=== PATIENT | male | born 1950 | race Caucasian/White ===

== ENCOUNTER 2017-10-13 07:20 | Day surgery (SDC) | payer BC ==
[~2017-10-13 07:20] MED LIST: Lactated Ringers 1,000 ML IV SCH; Lidocaine 1%/Sod Bicarbonate in NS 8.4% 1 ML Syringe IDERM PRN; Sodium Chloride 0.9% 10 ML Syringe FLUSH PRN
[2017-10-13] MEDS ORDERED: Ketorolac 30 MG/ML SDV ONE (07:28)
[2017-10-13] MEDS ORDERED: Propofol 200 MG/20 ML SDV ONE ×2 (07:28→10:08)
[2017-10-13] MEDS ORDERED: fentaNYL 100 MCG/2 ML SDV ONE (07:28)
[2017-10-13] MEDS ORDERED: Midazolam 1 MG/ML 2 ML SDV ONE (07:28)
[2017-10-13] MEDS ORDERED: ceFAZolin 1 GM Vial ONE ×3 (07:51→08:55)
--- NOTE | 2017-10-13 08:14 | PCM.PREANE ---
Preanesthetic Assessment - Anesthesia/Transfusion/Family Hx Anesthesia History: Prior Anesthesia Without Reaction Family History of Anesthesia Reaction: No Transfusion History: No Prior Transfusion(s) - Review of Systems General: No Symptoms Pulmonary: No Symptoms Cardiovascular: Other (HTn) Gastrointestinal: No Symptoms Neurological: No Symptoms Other: Reports: None - Physical Assessment NPO Status Date: 10/12/17 NPO Status Time: 21:00 Pulse: 71 O2 Sat by Pulse Oximetry: 94 Respiratory Rate: 16 Blood Pressure: 144/92 Temperature: 36.8 C Weight: 91.6 kg ASA Class: 2 Mental Status: Alert & Oriented x3 Airway Class: Mallampati = 2 Dentition: Reports: Normal Dentition Thyro-Mental Finger Breadths: 3 Mouth Opening Finger Breadths: 3 ROM/Head Extension: Full Lungs: Clear to Auscultation, Normal Respiratory Effort Cardiovascular: Regular Rate, Regular Rhythm - Lab Values: Laboratory Last Values MRSA (PCR) Negative 10/01/17 16:38 - Allergies Allergies/Adverse Reactions: Allergies Allergy/AdvReac Type Severity Reaction Status Date / Time codeine AdvReac Headache Verified 10/10/17 15:13 - Blood Blood Available: No Product(s) Available: None - Anesthesia Plan Pre-Op Medication Ordered: None - Acknowledgements Anesthesia Type Planned: Spinal Pt an Appropriate Candidate for the Planned Anesthesia: Yes Alternatives and Risks of Anesthesia Discussed w Pt/Guardian: Yes Pt/Guardian Understands and Agrees with Anesthesia Plan: Yes PreAnesthesia Questionnaire HEENT History: Reports: Impaired Vision Cardiovascular History: Reports: Hypertension Respiratory History: Reports: None Genitourinary History: Reports: None HELP DESK SUPPORT History: Reports: None Musculoskeletal History: Reports: Other (See Below) Other Musculoskeletal History: left knee pain Neurological History: Reports: None Psychiatric History: Reports: None Endocrine/Metabolic History: Reports: None Hematologic History: Reports: None Immunologic History: Reports: None Oncologic (Cancer) History: Reports: None Dermatologic History: Reports: Other (See Below) Other Dermatologic History: skin neoplasm - Past Surgical History Head Surgeries/Procedures: Reports: None Cardiovascular Surgical History: Reports: None Respiratory Surgical History: Reports: None GI Surgical History: Reports: Colonoscopy Female Surgical History: Reports: None Male Surgical History: Reports: None Endocrine Surgical History: Reports: None Neurological Surgical History: Reports: None Musculoskeletal Surgical History: Reports: Arthroscopic Knee Oncologic Surgical History: Reports: None Dermatological Surgical History: Reports: None - SUBSTANCE USE Smoking Status *Q: Never Smoker Second Hand Smoke Exposure: No Days Per Week of Alcohol Use: 0 Recreational Drug Use History: No - HOME MEDS Home Medications: Home Meds Fluticasone Propionate [Flonase] 1 spray NASBOTH DAILY PRN 11/22/14 [History] Lisinopril/Hydrochlorothiazide [Lisinopril-Hctz 20-25 mg Tab] 20 - 25 mg PO DAILY 11/22/14 [History] Calcium Carb/Magnesium Cmb #10 [Karel-Mag] 1 tab PO DAILY 10/10/17 [History] Cholecalciferol (Vitamin D3) [Vitamin D3] 5,000 unit PO DAILY 10/10/17 [History] Fish Oil/[place]-3 Fatty Acids [Fish Oil 1,000 MG] 1 gm PO DAILY 10/10/17 [History ] Gluc 2KCl/Chondr/[place] Hy/Hy Ac [Glucosamine & Chondroitin Cap] 2 cap PO DAILY [History] Lysine 500 mg PO DAILY 10/10/17 [History] Multivitamin [Zoo Chews] 1 tab PO DAILY 10/10/17 [History] Potassium Chloride [Potassium Chloride] 20 meq PO TID 10/10/17 [History] Vitamin E 400 unit PO DAILY 10/10/17 [History] - CURRENT (IN HOUSE) MEDS Current Meds: Current Medications Aspirin (Ecotrin) 325 mg PO BID [facility] Bisacodyl (Dulcolax) 5 mg PO DAILY PRN PRN Reason: Constipation Morphine Sulfate 8 mg/Epinephrine HCl 0.3 mg/Cefuroxime Sodium 750 mg/Ketorolac Tromethamine 30 mg/Sodium Chloride 27.9 ml 0 mg .XX ONETIME ONE Stop: 10/13/17 09:31 Cyclobenzaprine HCl (Flexeril) 10 mg PO TID PRN PRN Reason: Spasms Diphenhydramine HCl (Benadryl) 25 mg IVPUSH Q4H PRN PRN Reason: Nausea Docusate Sodium (Colace) 100 mg PO BID [facility] Famotidine (Pepcid) 20 mg PO BID [facility] Lactated Ringer's (Ringers, Lactated) 1,000 mls @ 125 mls/hr IV ASDIRECTED [facility] Stop: 10/13/17 23:00 Cefazolin Sodium/Dextrose 2 gm (/ Premix) 50 mls @ 100 mls/hr IV Q8H [facility] Stop: 10/13/17 23:29 Ketorolac Tromethamine (Toradol) 15 mg IVPUSH Q6H PRN PRN Reason: Pain Lidocaine/Sodium Bicarbonate (Buffered Lidocaine 1% In Ns 8.4%) 0.25 ml IDERM ONETIME PRN PRN Reason: Prior to IV Start Stop: 10/13/17 18:00 Magnesium Hydroxide (Milk Of Magnesia) 30 ml PO BID PRN PRN Reason: Constipation Morphine Sulfate (Morphine) 2 mg IVPUSH Q2H PRN PRN Reason: Breakthrough Pain Naloxone HCl (Narcan) 0.1 mg IVPUSH Q5M PRN PRN Reason: Oversedation Ondansetron HCl (Zofran) 4 mg IVPUSH Q6H PRN PRN Reason: Nausea/Vomiting Oxycodone/Acetaminophen (Percocet 325-5 Mg) 1 - 2 tab PO Q4H PRN PRN Reason: Pain Senna (Senna) 8.6 mg PO BID PRN PRN Reason: Constipation Sodium Chloride (Saline Flush) 10 ml FLUSH ASDIRECTED PRN PRN Reason: Keep Vein Open Stop: 10/13/17 18:00 Discontinued Medications Cefazolin Sodium (Ancef) Confirm Administered Dose 2 gm .ROUTE .STK-MED ONE Stop: 10/13/17 07:29 Fentanyl (Sublimaze) Confirm Administered Dose 100 mcg .ROUTE .STK-MED ONE Stop: 10/13/17 07:29 Ketorolac Tromethamine (Toradol) Confirm Administered Dose 30 mg .ROUTE .STK- MED ONE Stop: 10/13/17 07:29 Midazolam HCl (Versed 1 Mg/Ml) Confirm Administered Dose 2 mg .ROUTE .STK-MED ONE Stop: 10/13/17 07:29 Propofol (Diprivan 20 Ml) Confirm Administered Dose 600 mg .ROUTE .STK-MED ONE Stop: 10/13/17 07:29
[2017-10-13] MEDS ORDERED: Bupivacaine 0.25% 30 ML SDV ONE (08:55)
[2017-10-13] MEDS ORDERED: Vancomycin 1 GM SDV ONE (08:55)
[2017-10-13] MEDS ORDERED: Iodine/Sodium Iodide 2% Tincture 30 ML Bottle ONE (08:55)
[2017-10-13] MEDS: Iodine/Sodium Iodide 2% Tincture 30 ML Bottle ONE ×2 (09:44→10:10)
[2017-10-13] MEDS: Bupivacaine 0.25% 30 ML SDV ONE ×2 (09:45→10:17)
[2017-10-13] MEDS: ceFAZolin 1 GM Vial ONE ×2 (09:45→10:00)
[2017-10-13] MEDS: Vancomycin 1 GM SDV ONE ×2 (09:47→10:20)
[2017-10-13] MEDS: Morphine 8 MG, EPINEPHrine 0.3 MG, Cefuroxime 750 MG, Ketorolac 30 MG, Sodium Chloride ... ONE ×15 (09:51→20:13)
[2017-10-13] MEDS ORDERED: diphenhydrAMINE 50 MG/ML SDV IVPUSH PRN (10:00)
[2017-10-13] MEDS ORDERED: Ondansetron 4 MG/2 ML SDV IVPUSH PRN ×2 (10:00→11:09)
[2017-10-13] MEDS ORDERED: Naloxone 0.4 MG/ML SDV IVPUSH PRN (10:00)
[2017-10-13] MEDS ORDERED: Bisacodyl 5 MG Tab PO PRN (10:00)
[2017-10-13] MEDS ORDERED: Cyclobenzaprine 10 MG Tab PO PRN (10:00)
[2017-10-13] MEDS ORDERED: Morphine 4 MG/ML Syringe IVPUSH PRN (10:00)
[2017-10-13] MEDS ORDERED: Magnesium Hydroxide 400 MG/5 ML Susp 30 ML Cup PO PRN (10:00)
[2017-10-13] MEDS ORDERED: Sennosides 8.6 MG Tab PO PRN (10:00)
[2017-10-13] MEDS ORDERED: Phenylephrine 1% 10 MG/ML SDV ONE (10:12)
[2017-10-13] MEDS ORDERED: Lactated Ringers 1,000 ML ONE (10:13)
[2017-10-13] MEDS ORDERED: Ropivacaine 0.5% 5 MG/ML 30 ML SDV ONE (10:56)
[2017-10-13] MEDS ORDERED: EPINEPHrine 1 MG/ML SDV ONE (10:56)
--- NOTE | 2017-10-13 11:08 | PCM.POSTAN ---
POST ANESTHESIA ASSESSMENT - MENTAL STATUS Mental Status: Alert, Oriented - VITAL SIGNS Pulse Rate: 90 SaO2: 96 Resp Rate: 20 Blood Pressure: 102/68 Temperature: 36.5 C - RESPIRATORY Respiratory Status: Respiratory Rate WNL, Airway Patent, O2 Saturation Stable, Supplemental Oxygen - CARDIOVASCULAR CV Status: Pulse Rate WNL, Blood Pressure Stable - GASTROINTESTINAL GI Status: No Symptoms - PAIN Pain Score: 0 - POST OP HYDRATION Hydration Status: Adequate & Stable
[2017-10-13] MEDS ORDERED: fentaNYL 100 MCG/2 ML SDV IVPUSH PRN (11:09)
[2017-10-13] MEDS ORDERED: HYDROmorphone 0.5 MG/0.5 ML Syringe IVPUSH PRN (11:09)
--- NOTE | 2017-10-13 11:39 | PCM.SN ---
- Free Text/Narrative Note: Left selective femoral nerve block at the adductor canal for post-procedure pain control under US guidance requested by Dr. Mendez. Time Out: 1109 Start: 1116 End: 1121 Chart reviewed. Consent signed. Questions answered. Appropriate monitors applied. Time out performed. Left mid-shaft femur identified with ultrasound, scanning medially of femur, the femoral artery in the adductor canal visualized , and the femoral nerve located laterally to the artery. The skin was prepped lateral to the ultrasound probe with chlorahexadine. The 21ga 4 insulated block needle was inserted under direct ultrasound guidance into the adductor canal. 25mL of 0.5% ropivacaine with 1:200,000 epinephrine was injected circumferentially around the nerve with intermittent negative aspiration noted. Patient tolerated the procedure well. See pictures on progress note and vital signs on nurses notes. Block completed in PACU. Assisted by JES Quintero CRNA
--- NOTE | 2017-10-13 12:27 | CR ---
Left knee: Two views of the left knee were obtained. Comparison: Prior left knee exam of 08/11/17. Knee prosthesis is seen. Components are aligned. Underlying bony structures are intact. Soft tissue air is noted from the surgical procedure. Impression: 1. Satisfactory appearance of recently placed left knee prosthesis. Diagnostic code #2
--- NOTE | 2017-10-13 13:21 | PCM48HPAN ---
Post Anesthesia Note - EVALUATION WITHIN 48HRS OF ANESTHETIC Vital Signs in Normal Range: Yes Patient Participated in Evaluation: Yes Respiratory Function Stable: Yes Airway Patent: Yes Cardiovascular Function Stable: Yes Hydration Status Stable: Yes Pain Control Satisfactory: Yes Nausea and Vomiting Control Satisfactory: Yes Mental Status Recovered: Yes Pulse Rate: 90 Resp Rate: 14 Temperature: 36.5 C Blood Pressure: 102/68
[2017-10-13] MEDS: ceFAZolin 2 GM in Premix Bag 1 BAG IV SCH ×2 (15:54→22:01)
[2017-10-13] MEDS: Potassium Chloride 20 MEQ Tab.ER PO SCH ×2 (15:54→22:02)
[2017-10-13] MEDS: Ketorolac 15 MG/ML SDV IVPUSH PRN (18:22)
[2017-10-13] MEDS: Docusate Sodium 100 MG Cap PO SCH (22:02)
[2017-10-13] MEDS: Famotidine 20 MG Tab PO SCH (22:02)
[2017-10-13] MEDS: Acetaminophen/oxyCODONE 325-5 MG Tab PO PRN (22:03)
[2017-10-14] MEDS: Ketorolac 15 MG/ML SDV IVPUSH PRN (00:34)
[2017-10-14] MEDS: ceFAZolin 2 GM in Premix Bag 1 BAG IV SCH (07:05)
--- NOTE | 2017-10-14 08:07 | PCM.SURGPN ---
- General Info Date of Service: 10/14/17 POD#: 1 Functional Status: Reports: Pain Controlled, Tolerating Diet, Ambulating, Urinating, Incentive Spirometry - Review of Systems Musculoskeletal: Reports: Other (The pt and state pt is prepared for discharge to home.) - Patient Data Vitals - Most Recent: Last Vital Signs Temp 98.6 F 10/14/17 07:41 Pulse 74 10/14/17 07:41 Resp 20 10/14/17 07:41 BP 122/76 10/14/17 07:41 Pulse Ox 95 10/14/17 07:41 Weight - Most Recent: 201 lb 15.095 oz I&O - Last 24 Hours: Intake & Output 10/13/17 10/14/17 10/14/17 22:59 06:59 14:59 Intake Total 0 Balance 0 Lab Results Last 24 Hrs: Laboratory Results - last 24 hr 10/14/17 Range/Units 05:52 WBC 8.51 (4.23-9.07) K/mm3 RBC 3.98 L (4.63-6.08) M/mm3 Hgb 12.7 L (13.7-17.5) gm/L Hct 37.5 L (40.1-51.0) % MCV 94.2 H (79.0-92.2) fl MCH 31.9 (25.7-32.2) pg MCHC 33.9 (32.2-35.5) g/dl RDW Std Deviation 40.6 (35.1-43.9) fL Plt Count 217 (163-337) K/mm3 MPV 11.4 (9.4-12.3) fl Med Orders - Current: Current Medications Aspirin (Ecotrin) 325 mg PO BID [facility] Bisacodyl (Dulcolax) 5 mg PO DAILY PRN PRN Reason: Constipation Cholecalciferol (Vitamin D3) 5,000 units PO DAILY [facility] Cyclobenzaprine HCl (Flexeril) 10 mg PO TID PRN PRN Reason: Spasms Last Admin: 10/13/17 22:03 Dose: 10 mg Diphenhydramine HCl (Benadryl) 25 mg IVPUSH Q4H PRN PRN Reason: Nausea Docusate Sodium (Colace) 100 mg PO BID [facility] Last Admin: 10/13/17 22:02 Dose: 100 mg Famotidine (Pepcid) 20 mg PO BID [facility] Last Admin: 10/13/17 22:02 Dose: 20 mg Flunisolide (Nasalide Nasal [place]) 0 ml NASBOTH BID PRN PRN Reason: Allergies Hydrochlorothiazide (Hydrochlorothiazide) 25 mg PO DAILY [facility] Ketorolac Tromethamine (Toradol) 15 mg IVPUSH Q6H PRN PRN Reason: Pain Last Admin: 10/14/17 00:34 Dose: 15 mg Lisinopril (Prinivil) 20 mg PO DAILY [facility] Magnesium Hydroxide (Milk Of Magnesia) 30 ml PO BID PRN PRN Reason: Constipation Morphine Sulfate (Morphine) 2 mg IVPUSH Q2H PRN PRN Reason: Breakthrough Pain Last Admin: 10/14/17 00:35 Dose: 2 mg Multivitamins (Thera) 1 each PO DAILY [facility] Naloxone HCl (Narcan) 0.1 mg IVPUSH Q5M PRN PRN Reason: Oversedation Ondansetron HCl (Zofran) 4 mg IVPUSH Q6H PRN PRN Reason: Nausea/Vomiting Oxycodone/Acetaminophen (Percocet 325-5 Mg) 1 - 2 tab PO Q4H PRN PRN Reason: Pain Last Admin: 10/13/17 22:03 Dose: 2 tab Potassium Chloride (Klor-Con M20) 20 meq PO TID [facility] Last Admin: 10/13/17 22:02 Dose: 20 meq Senna (Senna) 8.6 mg PO BID PRN PRN Reason: Constipation Discontinued Medications Bupivacaine HCl (Marcaine 0.25%) Confirm Administered Dose 30 ml .ROUTE .STK- MED ONE Stop: 10/13/17 07:52 Last Admin: 10/13/17 10:17 Dose: 30 ml Bupivacaine HCl (Marcaine 0.25%) Confirm Administered Dose 30 ml .ROUTE .STK- MED ONE Stop: 10/13/17 08:56 Cefazolin Sodium (Ancef) Confirm Administered Dose 2 gm .ROUTE .STK-MED ONE Stop: 10/13/17 07:29 Last Admin: 10/13/17 10:00 Dose: 2 gm Cefazolin Sodium (Ancef) Confirm Administered Dose 2 gm .ROUTE .STK-MED ONE Stop: 10/13/17 07:52 Cefazolin Sodium (Ancef) Confirm Administered Dose 1 gm .ROUTE .STK-MED ONE Stop: 10/13/17 07:53 Cefazolin Sodium (Ancef) Confirm Administered Dose 2 gm .ROUTE .STK-MED ONE Stop: 10/13/17 08:56 Morphine Sulfate 8 mg/Epinephrine HCl 0.3 mg/Cefuroxime Sodium 750 mg/Ketorolac Tromethamine 30 mg/Sodium Chloride 27.9 ml 0 mg .XX ONETIME ONE Stop: 10/13/17 09:31 Last Admin: 10/13/17 20:13 Dose: Not Given Epinephrine HCl (Adrenalin) Confirm Administered Dose 1 mg .ROUTE .STK-MED ONE Stop: 10/13/17 10:57 Fentanyl (Sublimaze) Confirm Administered Dose 100 mcg .ROUTE .STK-MED ONE Stop: 10/13/17 07:29 Fentanyl (Sublimaze) 50 mcg IVPUSH Q5M PRN PRN Reason: pain Stop: 10/13/17 18:00 Hydromorphone HCl (Dilaudid) 0.5 mg IVPUSH ONETIME PRN PRN Reason: Pain (moderate 4-6) Stop: 10/13/17 18:00 Lactated Ringer's (Ringers, Lactated) 1,000 mls @ 125 mls/hr IV ASDIRECTED [facility] Stop: 10/13/17 23:00 Last Admin: 10/13/17 07:50 Dose: 125 mls/hr Cefazolin Sodium/Dextrose 2 gm (/ Premix) 50 mls @ 100 mls/hr IV Q8H [facility] Stop: 10/14/17 07:29 Last Admin: 10/14/17 07:05 Dose: 100 mls/hr Lactated Ringer's (Ringers, Lactated) Confirm Administered Dose 1,000 mls @ as directed .ROUTE .STK-MED ONE Stop: 10/13/17 10:14 Iodine (Iodine 2% Mild Tincture) Confirm Administered Dose 30 ml .ROUTE .STK- MED ONE Stop: 10/13/17 07:52 Last Admin: 10/13/17 10:10 Dose: 18 ml Iodine (Iodine 2% Mild Tincture) Confirm Administered Dose 30 ml .ROUTE .STK- MED ONE Stop: 10/13/17 08:56 Ketorolac Tromethamine (Toradol) Confirm Administered Dose 30 mg .ROUTE .STK- MED ONE Stop: 10/13/17 07:29 Lidocaine/Sodium Bicarbonate (Buffered Lidocaine 1% In Ns 8.4%) 0.25 ml IDERM ONETIME PRN PRN Reason: Prior to IV Start Stop: 10/13/17 18:00 Last Admin: 10/13/17 07:49 Dose: 0.25 ml Midazolam HCl (Versed 1 Mg/Ml) Confirm Administered Dose 2 mg .ROUTE .STK-MED ONE Stop: 10/13/17 07:29 Non-Formulary Medication (Calcium Carb/Magnesium Cmb #10 [Karel-Mag]) 1 tab PO DAILY [facility] Non-Formulary Medication (Gluc 2kcl/Chondr/Ped[place] Luis Hy/Hy Ac [Glucosamine & Chondroitin Cap]) 2 cap PO DAILY [facility] Non-Formulary Medication (Lysine [Lysine]) 500 mg PO DAILY [facility] Ondansetron HCl (Zofran) 4 mg IVPUSH ONETIME PRN PRN Reason: Nausea/Vomiting Stop: 10/13/17 18:00 Phenylephrine HCl ([place]-Synephrine) Confirm Administered Dose 10 mg .ROUTE .STK- MED ONE Stop: 10/13/17 10:13 Propofol (Diprivan 20 Ml) Confirm Administered Dose 600 mg .ROUTE .STK-MED ONE Stop: 10/13/17 07:29 Propofol (Diprivan 20 Ml) Confirm Administered Dose 400 mg .ROUTE .STK-MED ONE Stop: 10/13/17 10:09 Ropivacaine (Naropin 0.5%) Confirm Administered Dose 30 ml .ROUTE .STK-MED ONE Stop: 10/13/17 10:57 Sodium Chloride (Saline Flush) 10 ml FLUSH ASDIRECTED PRN PRN Reason: Keep Vein Open Stop: 10/13/17 18:00 Tranexamic Acid (Cyklokapron) Confirm Administered Dose 1,000 mg .ROUTE .STK- MED ONE Stop: 10/13/17 07:52 Last Admin: 10/13/17 10:24 Dose: 1,000 mg Tranexamic Acid (Cyklokapron) Confirm Administered Dose 1,000 mg .ROUTE .STK- MED ONE Stop: 10/13/17 08:55 Vancomycin HCl (Vancomycin) Confirm Administered Dose 1 gm .ROUTE .STK-MED ONE Stop: 10/13/17 07:52 Last Admin: 10/13/17 10:20 Dose: 1 gm Vancomycin HCl (Vancomycin) Confirm Administered Dose 1 gm .ROUTE .STK-MED ONE Stop: 10/13/17 08:56 - Exam Wound/Incisions: Dressing Dry and Intact General: Alert, Cooperative, No Acute Distress Lungs: Normal Respiratory Effort Extremities: Other (NVS intact for BLE. Alis's negative for LLE. ) - Problem List Review Problem List Initiated/Reviewed/Updated: Yes - My Orders Last 24 Hours: Active Orders 24 hr Category Date Time Status Admission Status [Patient Status] [ADT] Routine ADT 10/13/17 18:39 Active Cooling Warming Measures [RC] ASDIRECTED Care 10/13/17 11:09 Inactive Notify Provider [RC] ASDIRECTED Care 10/13/17 11:09 Active Oxygen Therapy [RC] ASDIRECTED Care 10/13/17 11:08 Active Pulse Oximetry [RC] ASDIRECTED Care 10/13/17 11:09 Active Ready for Discharge [RC] PER UNIT ROUTINE Care 10/14/17 08:06 Ordered Regular Diet [DIET] Diet 10/13/17 Lunch Active COMPREHENSIVE METABOLIC PN,CMP [CHEM] AM Lab 10/14/17 05:52 Received Acetaminophen/oxyCODONE [Percocet 325-5 MG] Med 10/13/17 10:00 Active 1 - 2 tab PO Q4H PRN Aspirin [Ecotrin] Med 10/14/17 09:00 Active 325 mg PO BID Bisacodyl [Dulcolax] Med 10/13/17 10:00 Active 5 mg PO DAILY PRN Cholecalciferol (Vitamin D3) [Vitamin D3] Med 10/14/17 09:00 Active 5,000 units PO DAILY Cyclobenzaprine [Flexeril] Med 10/13/17 10:00 Active 10 mg PO TID PRN Docusate Sodium [Colace] Med 10/13/17 21:00 Active 100 mg PO BID Famotidine [Pepcid] Med 10/13/17 21:00 Active 20 mg PO BID Flunisolide [Nasalide Nasal [place]] Med 10/13/17 13:15 Active 0 ml NASBOTH BID PRN Hydrochlorothiazide Med 10/14/17 09:00 Active 25 mg PO DAILY Ketorolac [Toradol] Med 10/13/17 10:00 Active 15 mg IVPUSH Q6H PRN Lisinopril [Prinivil] Med 10/14/17 09:00 Active 20 mg PO DAILY Magnesium Hydroxide [Milk of Magnesia] Med 10/13/17 10:00 Active 30 ml PO BID PRN Morphine Med 10/13/17 10:00 Active 2 mg IVPUSH Q2H PRN Multivitamins,Therapeutic [Thera] Med 10/14/17 09:00 Active 1 each PO DAILY Naloxone [Narcan] Med 10/13/17 10:00 Active 0.1 mg IVPUSH Q5M PRN Ondansetron [Zofran] Med 10/13/17 10:00 Active 4 mg IVPUSH Q6H PRN Potassium Chloride [Klor-Con M20] Med 10/13/17 15:00 Active 20 meq PO TID Sennosides [Senna] Med 10/13/17 10:00 Active 8.6 mg PO BID PRN diphenhydrAMINE [Benadryl] Med 10/13/17 10:00 Active 25 mg IVPUSH Q4H PRN Medication Orders Aspirin (Ecotrin) 325 mg PO BID [facility] Bisacodyl (Dulcolax) 5 mg PO DAILY PRN PRN Reason: Constipation Cholecalciferol (Vitamin D3) 5,000 units PO DAILY [facility] Cyclobenzaprine HCl (Flexeril) 10 mg PO TID PRN PRN Reason: Spasms Last Admin: 10/13/17 22:03 Dose: 10 mg Diphenhydramine HCl (Benadryl) 25 mg IVPUSH Q4H PRN PRN Reason: Nausea Docusate Sodium (Colace) 100 mg PO BID [facility] Last Admin: 10/13/17 22:02 Dose: 100 mg Famotidine (Pepcid) 20 mg PO BID [facility] Last Admin: 10/13/17 22:02 Dose: 20 mg Flunisolide (Nasalide Nasal [place]) 0 ml NASBOTH BID PRN PRN Reason: Allergies Hydrochlorothiazide (Hydrochlorothiazide) 25 mg PO DAILY [facility] Ketorolac Tromethamine (Toradol) 15 mg IVPUSH Q6H PRN PRN Reason: Pain Last Admin: 10/14/17 00:34 Dose: 15 mg Admin: 10/13/17 18:22 Dose: 15 mg Lisinopril (Prinivil) 20 mg PO DAILY [facility] Magnesium Hydroxide (Milk Of Magnesia) 30 ml PO BID PRN PRN Reason: Constipation Morphine Sulfate (Morphine) 2 mg IVPUSH Q2H PRN PRN Reason: Breakthrough Pain Last Admin: 10/14/17 00:35 Dose: 2 mg Multivitamins (Thera) 1 each PO DAILY [facility] Naloxone HCl (Narcan) 0.1 mg IVPUSH Q5M PRN PRN Reason: Oversedation Ondansetron HCl (Zofran) 4 mg IVPUSH Q6H PRN PRN Reason: Nausea/Vomiting Oxycodone/Acetaminophen (Percocet 325-5 Mg) 1 - 2 tab PO Q4H PRN PRN Reason: Pain Last Admin: 10/13/17 22:03 Dose: 2 tab Potassium Chloride (Klor-Con M20) 20 meq PO TID [facility] Last Admin: 10/13/17 22:02 Dose: 20 meq Admin: 10/13/17 15:54 Dose: 20 meq Senna (Senna) 8.6 mg PO BID PRN PRN Reason: Constipation - Assessment Assessment (Free Text/Narrative):: POD#1 - left TKA - Plan Plan (Free Text/Narrative):: 1. Hgb 12.7. 2. Discharge to home today. 3. 325mg ASA, frequent mobility, SCDs. 4. Outpatient P.T. The pt's case was discussed with Dr. Mendez.
[2017-10-14] MEDS ORDERED: Lisinopril 20 MG Tab PO SCH (09:00)
[2017-10-14] MEDS ORDERED: Cholecalciferol (Vitamin D3) 1,000 Unit Tab PO SCH (09:00)
[2017-10-14] MEDS ORDERED: Non-Formulary Medication 1 Each (Lysine [Lysine] 500 MG) PO SCH (09:00)
[2017-10-14] MEDS ORDERED: Aspirin 325 MG Tab.EC PO SCH (09:00)
[2017-10-14] MEDS ORDERED: Hydrochlorothiazide 25 MG Tab PO SCH (09:00)
[2017-10-14] MEDS ORDERED: Multivitamins,Therapeutic Tab PO SCH (09:00)
[2017-10-14] MEDS ORDERED: MAGNESIUM CMB PO SCH (09:00)
[2017-10-14] MEDS ORDERED: Non-Formulary Medication 1 Each (Gluc 2kcl/Chondr/Coll Hy/Hy Ac [Glucosamine & Chondroitin PO SCH (09:00)
[2017-10-14] MEDS ORDERED: CALCIUM CARB PO SCH (09:00)
[2017-10-14] MEDS: Docusate Sodium 100 MG Cap PO SCH (09:10)
[2017-10-14] MEDS: Famotidine 20 MG Tab PO SCH (09:10)
[2017-10-14] MEDS: Potassium Chloride 20 MEQ Tab.ER PO SCH (09:10)
--- NOTE | 2017-10-14 09:15 | PCM48HPAN ---
Post Anesthesia Note - EVALUATION WITHIN 48HRS OF ANESTHETIC Vital Signs in Normal Range: Yes Patient Participated in Evaluation: Yes Respiratory Function Stable: Yes Airway Patent: Yes Cardiovascular Function Stable: Yes Hydration Status Stable: Yes Pain Control Satisfactory: Yes ("horrible pain last evening" better now. ) Nausea and Vomiting Control Satisfactory: Yes (No nausea) Mental Status Recovered: Yes Pulse Rate: 74 Resp Rate: 20 Temperature: 98.6 F Blood Pressure: 122/76
--- NOTE | 2017-10-14 10:27 | PCM.CONS ---
H&P History of Present Illness - General Date of Service: 10/14/17 Admit Problem/Dx: Admission Diagnosis/Problem Admission Diagnosis/Problem Osteoarthritis of knee Source of Information: Patient, Family, Provider, RN Notes Reviewed History Limitations: Reports: Physical Impairment - History of Present Illness Initial Comments - Free Text/Narative: This is a 67-year-old, white male, with past medical history of HTN, Left Knee OA, and Obesity who underwent left total knee arthroplasty post operative day 1. Patient is doing relatively well. Currently, his pain is controlled. He denies any acute issues. Medicine was consulted for postoperative care. Left Knee Pain Score (Numeric/FACES): 0 - Related Data Allergies/Adverse Reactions: Allergies Allergy/AdvReac Type Severity Reaction Status Date / Time codeine AdvReac Headache, Verified 10/13/17 08:21 Hallucinations Home Medications: Home Meds Fluticasone Propionate [Flonase] 1 spray NASBOTH DAILY PRN 11/22/14 [History] Lisinopril/Hydrochlorothiazide [Lisinopril-Hctz 20-25 mg Tab] 20 - 25 mg PO DAILY 11/22/14 [History] Calcium Carb/Magnesium Cmb #10 [Karel-Mag] 1 tab PO DAILY 10/10/17 [History] Cholecalciferol (Vitamin D3) [Vitamin D3] 5,000 unit PO DAILY 10/10/17 [History] Gluc 2KCl/Chondr/Pedro Luis Hy/Hy Ac [Glucosamine & Chondroitin Cap] 2 cap PO DAILY [History] Lysine 500 mg PO DAILY 10/10/17 [History] Multivitamin [Zoo Chews] 1 tab PO DAILY 10/10/17 [History] Potassium Chloride 20 meq PO TID 10/10/17 [History] Acetaminophen/oxyCODONE [Percocet 325-5 MG] 1 - 2 tab PO Q6H PRN #60 tablet [Rx] Aspirin [Ecotrin] 325 mg PO BID #84 tab.ec 10/14/17 [Rx] Bisacodyl [Dulcolax] 5 mg PO DAILY PRN tablet 10/14/17 [Rx] Cyclobenzaprine [Flexeril] 10 mg PO TID PRN #40 tablet 10/14/17 [Rx] Docusate Sodium [Colace] 100 mg PO BID cap 10/14/17 [Rx] Famotidine [Pepcid] 20 mg PO BID tablet 10/14/17 [Rx] Magnesium Hydroxide [Milk of Magnesia] 30 ml PO BID PRN cup 10/14/17 [Rx] Sennosides [Senna] 8.6 mg PO BID PRN tablet 10/14/17 [Rx] Past Medical History HEENT History: Reports: Impaired Vision Cardiovascular History: Reports: Hypertension Respiratory History: Reports: None Genitourinary History: Reports: None FLOOR GRINDER History: Reports: None Musculoskeletal History: Reports: Other (See Below) Other Musculoskeletal History: left knee pain Neurological History: Reports: None Psychiatric History: Reports: None Endocrine/Metabolic History: Reports: None Hematologic History: Reports: None Immunologic History: Reports: None Oncologic (Cancer) History: Reports: None Dermatologic History: Reports: Other (See Below) Other Dermatologic History: skin neoplasm - Past Surgical History Head Surgeries/Procedures: Reports: None Cardiovascular Surgical History: Reports: None Respiratory Surgical History: Reports: None GI Surgical History: Reports: Colonoscopy Female Surgical History: Reports: None Male Surgical History: Reports: None Endocrine Surgical History: Reports: None Neurological Surgical History: Reports: None Musculoskeletal Surgical History: Reports: Arthroscopic Knee Oncologic Surgical History: Reports: None Dermatological Surgical History: Reports: None Social & Family History - Tobacco Use Smoking Status *Q: Never Smoker Second Hand Smoke Exposure: No - Caffeine Use Caffeine Use: Reports: Coffee - Alcohol Use Days Per Week of Alcohol Use: 0 - Recreational Drug Use Recreational Drug Use: No H&P Review of Systems - Review of Systems: Review Of Systems: See Below General: Denies: Fever, Chills, Malaise, Weakness, Fatigue HEENT: Denies: Contact Lenses Pulmonary: Denies: Shortness of Breath, Wheezing Cardiovascular: Denies: Chest Pain, Palpitations, Dyspnea on Exertion, Lightheadedness Gastrointestinal: Denies: Abdominal Pain, Decreased Appetite, Nausea, Vomiting Genitourinary: Reports: No Symptoms Musculoskeletal: Reports: No Symptoms Skin: Denies: Cyanosis, Jaundice, Mottled, Pallor, Diaphoresis, Bruising Psychiatric: Denies: Depression, Anxiety, Agitation, Hallucinations Neurological: Reports: Difficulty Walking, Gait Disturbance. Denies: Confusion , Seizure, Weakness Hematologic/Lymphatic: Reports: No Symptoms Immunologic: Reports: No Symptoms Exam - Exam Exam: See Below - Vital Signs Vital Signs: Last Vital Signs Temp 37.0 C 10/14/17 09:15 Pulse 74 10/14/17 09:15 Resp 20 10/14/17 09:15 BP 122/76 10/14/17 09:15 Pulse Ox 95 10/14/17 07:41 Weight: 91.6 kg - Exam General: Alert, Oriented, Cooperative, Mild Distress HEENT: Conjunctiva Clear, EACs Clear, EOMI, Mucosa Moist & [place], Nares Patent, Posterior Pharynx Clear, Pupils Equal, Pupils Reactive Neck: Supple, Trachea Midline, +2 Carotid Pulse wo Bruit Lungs: Clear to Auscultation, Normal Respiratory Effort Cardiovascular: Regular Rate, Regular Rhythm GI/Abdominal Exam: Normal Bowel Sounds, Soft, Non-Tender, No Organomegaly, No Distention, No Abnormal Bruit, No Mass (Male) Exam: Deferred Rectal (Males) Exam: Deferred Back Exam: Normal Inspection, Decreased Range of Motion Extremities: Normal Inspection, Normal Range of Motion, Non-Tender, No Pedal Edema, Normal Capillary Refill Peripheral Pulses: 3+: Posterior Tibial (L), Posterior Tibial (R), Dorsalis Pedis (L), Dorsalis Pedis (R) Skin: Warm, Dry, Intact Neuro Extensive - Mental Status: Oriented x3, Normal Cognition, Memory Intact Neuro Extensive - Motor, Sensory, Reflexes: CN II-XII Intact, Abnormal Gait Psychiatric: Alert, Normal Affect, Normal Mood - Patient Data Lab Results Last 24 hrs: Laboratory Results - last 24 hr 10/14/17 10/14/17 Range/Units 05:52 05:52 WBC 8.51 (4.23-9.07) K/mm3 RBC 3.98 L (4.63-6.08) M/mm3 Hgb 12.7 L (13.7-17.5) gm/L Hct 37.5 L (40.1-51.0) % MCV 94.2 H (79.0-92.2) fl MCH 31.9 (25.7-32.2) pg MCHC 33.9 (32.2-35.5) g/dl RDW Std Deviation 40.6 (35.1-43.9) fL Plt Count 217 (163-337) K/mm3 MPV 11.4 (9.4-12.3) fl Sodium 134 L (136-145) mEq/L Potassium 3.9 (3.5-5.1) mEq/L Chloride 101 (98-107) mEq/L Carbon Dioxide 25 (21-32) mEq/L Anion Gap 11.9 (5-15) BUN 17 (7-18) mg/dL Creatinine 1.0 (0.7-1.3) mg/dL Est Cr Clr Drug Dosing 65.57 mL/min Estimated GFR (MDRD) > 60 (>60) mL/min BUN/Creatinine Ratio 17.0 (14-18) Glucose 130 H (80-115) mg/dL Calcium 7.8 L (8.5-10.1) mg/dL Total Bilirubin 0.7 (0.2-1.0) mg/dL AST 24 (15-37) U/L ALT 22 (16-63) U/L Alkaline Phosphatase 42 L (46-116) U/L Total Protein 5.4 L (6.4-8.2) g/dl Albumin 2.8 L (3.4-5.0) g/dl Globulin 2.6 gm/dL Albumin/Globulin Ratio 1.1 (1-2) Result Diagrams: 10/14/17 05:52 10/14/17 05:52 Consult PN Assessment/Plan POD#: 1 Procedures: Procedures ASSAY OF PREALBUMIN (09/24/17) ASSAY OF PSA TOTAL (01/01/17) ASSAY OF TROPONIN QUANT (04/13/16) CHEST X-RAY 2VW FRONTAL&LATL (11/10/13) COLONOSCOPY W/LESION REMOVAL (11/23/14) COMPLETE CBC W/AUTO DIFF WBC (09/24/17) COMPREHEN METABOLIC PANEL (09/24/17) DXA BONE DENSITY AXIAL (10/01/17) ELECTROCARDIOGRAM TRACING (04/13/16) EMERGENCY DEPT VISIT (04/13/16) GLUCOSE BLOOD TEST (04/13/16) HYDRATE IV INFUSION ADD-ON (04/13/16) HYDRATION IV INFUSION INIT (04/13/16) LIPID PANEL (08/19/17) METABOLIC PANEL TOTAL CA (06/25/16) MRI JNT OF LWR EXTRE W/O DYE (08/14/17) PROTHROMBIN TIME (09/24/17) ROUTINE VENIPUNCTURE (04/13/16) THROMBOPLASTIN TIME PARTIAL (09/24/17) TISSUE EXAM BY PATHOLOGIST (11/23/14) URINALYSIS AUTO W/SCOPE (09/24/17) URINE CULTURE/COLONY COUNT (09/24/17) X-RAY EXAM CHEST 2 VIEWS (09/24/17) X-RAY EXAM KNEE 4 OR MORE (08/11/17) Problem List Initiated/Reviewed/Updated: Yes Plan: Assessment: Acute: Post-Operative Care State - Stable - Continue to monitor for hemodynamic instability S/p Left Total Knee Arthroplasty - Stable - DVT and Pain Management as per primary team Hx/o Chronic Left Knee Pain S/p Left TKA - Pain Management as per primary team Chronic: HTN Obesity with BMI 32.6 Plan: He is clinically stable Routine AM labs Continue PT/OT IS q2 awake Thank you for the opportunity to participate in the management of this patient Requesting Provider: Dr Mendez Date Consult Requested: 10/13/17 Reason for Consult: Post Operative Care Patient History Reviewed: Yes Admission H&P Reviewed: Yes Consult Result/Summary:: Stable Notified Requestor: Yes Time Spent (in minutes): 45
[2017-10-14] MEDS: Acetaminophen/oxyCODONE 325-5 MG Tab PO PRN (12:36)
[2017-10-14 12:37] VITALS: BP 126/82
--- NOTE | 2017-10-23 22:11 | PCM.OPNOTE ---
- General Post-Op/Procedure Note Date of Surgery/Procedure: 10/13/17 Operative Procedure(s): left total knee arthroplasty Pre Op Diagnosis: left knee osteoarthrosis Post-Op Diagnosis: Same Anesthesia Technique: Local, MAC, Spinal Primary Surgeon: Sage Mendez Anesthesia Provider: Bren Peerz Meat Molder: Mayda Jc Meat Molder: Dnona Parker in mLs: 10 Complications: None Condition: Good
--- NOTE | 2017-10-23 22:45 | OR ---
DATE OF OPERATION: 10/13/2017 SURGEON: Sage Mendez MD OPERATION PERFORMED: Left total knee arthroplasty. PREOPERATIVE DIAGNOSIS: Left knee osteoarthrosis. POSTOPERATIVE DIAGNOSIS: Left knee osteoarthrosis. ANESTHESIA: Local MAC with spinal. ANESTHESIA PROVIDER: Bren Perez. BOOTMAKER: Mayda Jc PA-C and Donna Parker LPN. ESTIMATED BLOOD LOSS: 10 mL. COMPLICATIONS: None. CONDITION: Stable. IMPLANTS: 1. [place] size 6 PS cemented femur. 2. [place] size 5 cemented universal tibial base plate. 3. Rufina size 5 9 mm PS X3 polyethylene. 4. [place] size 32 x 10 mm asymmetric cemented patella. DESCRIPTION OF PROCEDURE: The patient was identified in the preop holding area. Proper site was marked and identified by the surgeon. The patient was taken back to the operating theater. After adequate anesthesia, the patient's left lower extremity had a nonsterile tourniquet applied and it was then sterilely prepped and draped in the usual sterile fashion. OR timeout was performed. The patient received 2 g IV Ancef. At this time, left lower extremity was exsanguinated. Tourniquet was insufflated to 300 mmHg. Standard medial parapatellar incision was made. Medial parapatellar arthrotomy was created. Deep fibers of the MCL were raised and anterior fat pad was resected. At this time, attention was turned to the patella. Patella measured 24, it was resected to a 14 for a 32 x 10 mm patella. Drill holes were then drilled and found to be in adequate position. The drill was then drilled in the distal femur and the intramedullary distal femoral cutting guide was then placed. 8 mm was resected off the distal femur and was found to be an adequate resection. Sizing guide was placed. It was found to be a Rufina size 6 PS cemented femur that was shown on the implant record at the beginning of this dictation. The drill holes were drilled for the epicondylar axis using Whitesides line and epicondyles as reference. At this time, the 4-in- 1 cutting block was placed. An anterior posterior and anterior and posterior chamfer cuts were then completed. The correct size box cut was then placed and the box cut was completed and found to be an adequate resection. Attention was turned to the tibia. The posterior medial lateral retractors were placed. The extramedullary tibial guide was placed. It was placed in the old footprint of the ACL. It was aligned with the center of the ankle and 0 degrees of slope, 9 mm was then resected off the unaffected lateral side. There was found to be an acceptable reduction. At this time, posterior osteophytes were removed along with medial and lateral meniscus. A trial implant was placed with a correct sized tibia that was mentioned at the beginning of the dictation. A Rufina size 5 9 mm PS X3 polyethylene was then placed. The patient's knee was brought through range of motion. The patella was tracking centrally and was stable to varus and valgus stress. Alignment was found to be roughly at 0 degrees. At this time, cement was mixed on the back table. The tibia was stamped and drilled in proper rotation. All cut surfaces were irrigated with pulse lavage irrigation with Ancef and then completely dried. Once this was completed, then the cement was ready. The universal tibial base plate was cemented in place. Next, the [place] size 6 PS cemented femur cemented into place and the Rufina size 5 9 mm PS X3 polyethylene was placed. The patient's knee was brought into full extension. Excess cement was removed. The patella was then cemented in place at this time. Tourniquet was deflated. One liter dilute Betadine solution was irrigated through the knee along with 3 L of pulse lavage irrigation with Ancef. Periarticular injection was then completed. The patient's knee was brought through a range of motion. Once the cement had time to set up and it was found to be stable to varus valgus stress, the patella was tracking centrally with full range of motion. At this time, a #2 barbed suture was used for closure of the medial parapatellar arthrotomy. Topical tranexamic acid was placed. 2-0 Vicryl was used subcutaneously, a running 3-0 Monocryl was used subcuticularly. The patient tolerated the procedure well and was sent to the PACU in stable condition. MMODAL /[id number]
== END 2017-10-14 14:45 | disposition home or self-care (01) ==
LOC: JD.SDS 07:20 → JD.MS 07:21 → JD.SDS 10-14 14:45
PROVIDERS: ATTEND Orthopaedic Surgery
DX: M17.12 Unilateral primary osteoarthritis, left knee (principal); I10 Essential (primary) hypertension; Z79.899 Other long term (current) drug therapy; Z88.8 Allergy status to other drugs, medicaments and biological substances; Z72.0 Tobacco use
CPT/HCPCS: 27447; 36415; 64450; 73560; 80053; 85027; 87641; 97110; 97116; 97161; 97165; 97535; A9270; C1713; C1776; J0171; J0690; J0697; J1885; J2250; J2270; J2370; J2795; J3010; J3370; J3490; J7120; 01402; J2704

== ENCOUNTER 2021-03-15 09:28 | Day surgery (SDC) | payer MEDICARE, BC ==
[~2021-03-15 09:28] MED LIST changes: +Midazolam 1 MG/ML 2 ML SDV ONE
--- NOTE | 2021-03-15 10:20 | PCM.PREANE ---
Preanesthetic Assessment - Procedure Proposed Procedure: Colonoscopy - Anesthesia/Transfusion/Family Hx Anesthesia History: Prior Anesthesia Without Reaction Family History of Anesthesia Reaction: No Transfusion History: No Prior Transfusion(s) - Review of Systems General: No Symptoms Pulmonary: No Symptoms Cardiovascular: No Symptoms Gastrointestinal: Abdominal Pain (hunger) Neurological: No Symptoms - Physical Assessment NPO Status Date: 03/14/21 NPO Status Time: 00:00 Vital Signs: Last Vital Signs Temp 36.7 C 03/15/21 09:30 Pulse 64 03/15/21 09:30 Resp 16 03/15/21 09:30 BP 118/77 03/15/21 09:30 Pulse Ox 96 03/15/21 09:30 Height: 1.68 m Weight: 88 kg ASA Class: 2 Mental Status: Alert & Oriented x3 Airway Class: Mallampati = 1 Dentition: Reports: Normal Dentition, [place](s) Thyro-Mental Finger Breadths: 3 Mouth Opening Finger Breadths: 3 ROM/Head Extension: Full Lungs: Clear to Auscultation, Normal Respiratory Effort Cardiovascular: Regular Rate, Regular Rhythm - Allergies Allergies/Adverse Reactions: Allergies Allergy/AdvReac Type Severity Reaction Status Date / Time codeine AdvReac Headache, Verified 03/14/21 08:56 Hallucinations - Blood Blood Available: No Product(s) Available: None - Anesthesia Plan Pre-Op Medication Ordered: None - Acknowledgements Anesthesia Type Planned: MAC Pt an Appropriate Candidate for the Planned Anesthesia: Yes Alternatives and Risks of Anesthesia Discussed w Pt/Guardian: Yes Pt/Guardian Understands and Agrees with Anesthesia Plan: Yes PreAnesthesia Questionnaire HEENT History: Reports: Allergic Rhinitis, Impaired Vision, Other (See Below) Other HEENT History: WEARS GLASSES Cardiovascular History: Reports: High Cholesterol, Hypertension Respiratory History: Reports: None Gastrointestinal History: Reports: None Genitourinary History: Reports: Other (See Below) Other Genitourinary History: ELEVATED PSA, 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 Musculoskeletal History: Reports: Other (See Below) Other Musculoskeletal History: left knee pain Neurological History: Reports: None Psychiatric History: Reports: None Endocrine/Metabolic History: Reports: None Hematologic History: Reports: Other (See Below) Other Hematologic History: HYPOKALEMIA Immunologic History: Reports: None Oncologic (Cancer) History: Reports: None Dermatologic History: Reports: Other (See Below) Other Dermatologic History: skin neoplasm - Past Surgical History Head Surgeries/Procedures: Reports: None Cardiovascular Surgical History: Reports: None Respiratory Surgical History: Reports: None GI Surgical History: Reports: Colonoscopy Female Surgical History: Reports: None Male Surgical History: Reports: None Endocrine Surgical History: Reports: None Neurological Surgical History: Reports: None Musculoskeletal Surgical History: Reports: Arthroscopic Knee, Knee Replacement Oncologic Surgical History: Reports: None Dermatological Surgical History: Reports: None - SUBSTANCE USE Tobacco Use Status *Q: Never Tobacco User Recreational Drug Use History: No - HOME MEDS Home Medications: Home Meds Cholecalciferol (Vitamin D3) [Vitamin D3] 2,000 unit PO DAILY 03/14/21 [History] Fluticasone Propionate [Flonase] 1 dose NASBOTH BID 03/14/21 [History] Lisinopril/Hydrochlorothiazide [Lisinopril-Hctz 20-25 mg Tab] 1 tab PO DAILY 03/14/21 [History] Multivitamin 1 tab PO DAILY 03/14/21 [History] Potassium Chloride 10 meq PO DAILY 03/14/21 [History] Vitamin E 400 unit PO DAILY 03/14/21 [History] Zinc Gluconate [Zinc] 50 mg PO DAILY 03/14/21 [History] - CURRENT (IN HOUSE) MEDS Current Meds: Current Medications Lactated Ringer's (Ringers, Lactated) 1,000 mls @ 125 mls/hr IV ASDIRECTED BARBIE Stop: 03/15/21 23:00 Lidocaine/Sodium Bicarbonate (Lidocaine 1%/Sod Bicarbonate In Ns 8.4% 1 Ml Syringe) 0.25 ml IDERM ONETIME PRN PRN Reason: Prior to IV Start Stop: 03/15/21 18:00 Sodium Chloride (Sodium Chloride 0.9% 10 Ml Syringe) 10 ml FLUSH ASDIRECTED PRN PRN Reason: Keep Vein Open Stop: 03/15/21 18:00 Discontinued Medications Midazolam HCl (Midazolam 1 Mg/Ml 2 Ml Sdv) Confirm Administered Dose 2 mg .ROUTE .STK-MED ONE Stop: 03/14/21 08:33
[2021-03-15] MEDS ORDERED: Propofol 200 MG/20 ML SDV ONE ×2 (11:19→11:43)
[2021-03-15] MEDS ORDERED: fentaNYL 100 MCG/2 ML SDV ONE (11:22)
[2021-03-15] MEDS ORDERED: Lidocaine 1% 4 ML ONE (11:23)
[2021-03-15] MEDS ORDERED: Lactated Ringers 1,000 ML ONE (11:31)
--- NOTE | 2021-03-15 12:02 | PCM.PRNOTE ---
- Free Text/Narrative Note: Date: 03/15/2021 Procedure: screening colonoscopy History: single adenoma removed on screening colonoscopy in 2015 Endoscopist: Gerber Keith MD Findings: good prep, though with lots of bubbles. Appendiceal orifice visualized with benign appearing subcentimeter polyp in close proximity. Few scattered diverticula. Pinhead size nodule on posterior anal canal with what looks like small sentinel pile. Hypertonic anal sphincter. Detailed Report: Patient was taken to the endoscopy suite and placed in left lateral decubitus position. Timeout was performed and monitored anesthesia care was initiated. Visual inspection of the anus revealed a small sentinel pile posteriorly. Digital rectal exam was remarkable only for what felt like hypotonic sphincter and pinhead sized benign feeling posterior nodule in the canal. The colonoscope was inserted and advanced all the way to the cecum with ease. The appendiceal orifice was visualized. A small subcentimeter polyp near the appendiceal orifice was identified and removed entirely with cold forceps. No other polyps were identified as the scope was slowly withdrawn and mucosal surfaces carefully inspected. There were a few scattered diverticula noted. Prep overall was good but there were a lot of bubbles in the proximal half of the colon. On retroflexion in the rectum, no hemorrhoids or other pathology was noted. Air was suctioned from the distal colon and rectum prior to withdrawal of the scope. The patient tolerated the procedure well.
--- NOTE | 2021-03-15 12:05 | PCM48HPAN ---
Post Anesthesia Note - EVALUATION WITHIN 48HRS OF ANESTHETIC Vital Signs in Normal Range: Yes Patient Participated in Evaluation: Yes Respiratory Function Stable: Yes Airway Patent: Yes Cardiovascular Function Stable: Yes Hydration Status Stable: Yes Pain Control Satisfactory: Yes Nausea and Vomiting Control Satisfactory: Yes Mental Status Recovered: Yes Vital Signs: Last Vital Signs Temp 36.7 C 03/15/21 09:30 Pulse 64 03/15/21 09:30 Resp 16 03/15/21 09:30 BP 118/77 03/15/21 09:30 Pulse Ox 96 03/15/21 09:30 - COMMENTS/OBSERVATIONS Free Text/Narrative:: no anesthesia complications noted
[2021-03-15 14:16] VITALS: BP 112/78; PULSE 57
== END 2021-03-15 12:45 | disposition home or self-care (01) ==
LOC: JD.SDS 09:28
PROVIDERS: ATTEND Surgery
DX: Z12.11 Encounter for screening for malignant neoplasm of colon (principal); D12.0 Benign neoplasm of cecum; K57.30 Diverticulosis of large intestine without perforation or abscess without bleeding; I10 Essential (primary) hypertension; E78.5 Hyperlipidemia, unspecified; E78.00 Pure hypercholesterolemia, unspecified; Z88.5 Allergy status to narcotic agent; Z79.899 Other long term (current) drug therapy; Z98.890 Other specified postprocedural states
CPT/HCPCS: 00812; 45380; 88305; J2250; J2704; J3010; J7120

== ENCOUNTER 2022-09-14 18:42 | Emergency (ER) | payer BC, MEDICARE ==
[2022-09-14 18:51] VITALS: BP 151/97; PULSE 70
[2022-09-14] MEDS ORDERED: Sodium Chloride 0.9% 1,000 ML IV ONE (19:19)
[2022-09-14] MEDS ORDERED: Tamsulosin 0.4 MG Cap.ER PO ONE (20:13)
== END 2022-09-14 21:05 | disposition home or self-care (01) ==
LOC: JD.ED 18:42
DX: N20.1 Calculus of ureter (principal); I10 Essential (primary) hypertension; M19.90 Unspecified osteoarthritis, unspecified site; Z88.5 Allergy status to narcotic agent; Z79.899 Other long term (current) drug therapy; Z86.16 Personal history of COVID-19
CPT/HCPCS: 74176; 81001; 96360; 99284; A9270; J7030

== ENCOUNTER → 2023-05-26 | Day surgery (SDC) | payer MEDICARE ==
[~2023-05-26] MED LIST changes: +Acetaminophen/HYDROcodone 325-5 MG Tab PO PRN; +Dexmedetomidine 200 MCG/2 ML SDV ONE; +EPINEPHrine 1 MG/ML SDV ONE; +HYDROmorphone 0.5 MG/0.5 ML Syringe IVPUSH PRN; +Ketorolac 15 MG/ML SDV ONE; +Lactated Ringers 1,000 ML ONE; -Lidocaine 1%/Sod Bicarbonate in NS 8.4% 1 ML Syringe IDERM PRN; +Ondansetron 4 MG/2 ML SDV IVPUSH PRN; +Ondansetron 4 MG/2 ML SDV ONE; +Propofol 200 MG/20 ML SDV ONE; +Ropivacaine 0.5% 5 MG/ML 30 ML SDV ONE; +Sodium Chloride 0.9% 10 ML Syringe FLUSH SCH; +ceFAZolin 2 GM Vial ONE; +fentaNYL 100 MCG/2 ML SDV IVPUSH PRN; +fentaNYL 100 MCG/2 ML SDV ONE
[2023-05-26] MEDS: Morphine 8 MG, EPINEPHrine 0.3 MG, Cefuroxime 750 MG, Ketorolac 30 MG, Sodium Chloride ... PRN ×10 (09:30→09:54)
[2023-05-26] MEDS: Vancomycin 1 GM SDV ONE ×2 (09:31→10:00)
[2023-05-26] MEDS: Tranexamic Acid 1,000 MG/10 ML Vial ONE ×2 (09:32→10:00)
[2023-05-26 13:30] VITALS: BP 119/109; PULSE 56
== END | disposition home or self-care (01) ==
LOC: JD.SDS 06:53
PROVIDERS: ATTEND Orthopaedic Surgery
DX: M17.11 Unilateral primary osteoarthritis, right knee (principal); E78.5 Hyperlipidemia, unspecified; I10 Essential (primary) hypertension; Z88.5 Allergy status to narcotic agent; Z79.899 Other long term (current) drug therapy; Z98.890 Other specified postprocedural states; Z90.79 Acquired absence of other genital organ(s)
CPT/HCPCS: 0055T; 27447; 64447; 73560; 97116; 97161; A9270; C1713; C1776; J0171; J0690; J0697; J1885; J2250; J2270; J2405; J2704; J2795; J3010; J3370; J7030; J7120; 01402; 99100; J3490

== ENCOUNTER 2024-04-04 12:15 | Emergency (ER) | payer MEDICARE ==
[2024-04-04 12:42] LABS: BASOPHILS PERCENT AUTO 0.3 % (0.0-1.0); EOSINOPHILS ABSOLUTE AUTO 0.1 K/mm3 (0.0-0.4); EOSINOPHILS PERCENT AUTO 1.2 % (0.0-6.0); HEMATOCRIT 43.2 % (42.0-52.0); HEMOGLOBIN 14.9 gm/dl (14.0-18.0); IMMATURE GRAN ABSOLUTE AUTO 0.06 K/mm3 (0.00-0.05); IMMATURE GRAN PERCENT AUTO 0.5 % (0.0-0.4); LYMPHOCYTES ABSOLUTE AUTO 3.9 K/mm3 (1.0-4.8); LYMPHOCYTES PERCENT AUTO 33.8 % (24.0-44.0); MEAN CORPUSCULAR HEMOGLOBIN 31.9 pg (28.0-32.0); MEAN CORPUSCULAR HGB CONC 34.5 g/dl (32.0-36.0); MEAN CORPUSCULAR VOLUME 92.5 fl (83.0-99.0); MEAN PLATELET VOLUME 10.7 fl (9.4-12.4); MONOCYTES ABSOLUTE AUTO 0.9 K/mm3 (0.0-0.8); MONOCYTES PERCENT AUTO 7.5 % (0.0-8.0); NEUTROPHILS ABSOLUTE AUTO 6.6 K/mm3 (1.8-7.7); NEUTROPHILS PERCENT AUTO 56.7 % (41.0-71.0); PLATELET COUNT,PLT 279 K/mm3 (150-400); RED BLOOD CELL COUNT 4.67 M/mm3 (4.52-5.90); WHITE BLOOD CELL COUNT,WBC 11.59 K/mm3 (3.9-11.3)
[2024-04-04 12:43] VITALS: PULSE 73
[2024-04-04 12:56] LABS: A/G RATIO 1.2 (1-2); ALBUMIN 3.6 g/dl (3.4-5.0); ANION GAP 18.3 (5-15); BILIRUBIN TOTAL 0.7 mg/dL (0.2-1.0); BUN/CREATININE RATIO 13.8 (14-18); C-REACTIVE PROTEIN 0.12 mg/dL (<0.30); CALCIUM 8.6 mg/dL (8.5-10.1); CREATININE 1.3 mg/dL (0.7-1.3); EST CRCL DRUG DOSING (CG) 45.67 mL/min; POTASSIUM,K 3.3 mEq/L (3.5-5.1); PROTEIN TOTAL,TP 6.6 g/dl (6.4-8.2)
[2024-04-04] MEDS: Metoclopramide 10 MG/2 ML SDV IVPUSH ONE (14:05)
[2024-04-04] MEDS: Sodium Chloride 0.9% 1,000 ML IV ONE (14:05)
[2024-04-04] MEDS: Sodium Chloride 0.9% 10 ML Syringe FLUSH PRN (14:06)
[2024-04-04] MEDS: LORazepam 2 MG/ML SDV IVPUSH ONE (14:08)
[2024-04-04 19:39] VITALS: BP 134/80
== END 2024-04-04 16:21 | disposition home or self-care (01) ==
LOC: JD.ED 12:15
DX: R42 Dizziness and giddiness (principal); I10 Essential (primary) hypertension; M19.90 Unspecified osteoarthritis, unspecified site; Z88.8 Allergy status to other drugs, medicaments and biological substances; Z79.82 Long term (current) use of aspirin; Z79.899 Other long term (current) drug therapy; Z86.16 Personal history of COVID-19
CPT/HCPCS: 36415; 70450; 80053; 85025; 86140; 96361; 96374; 96375; 99285; J2060; J2765; J3490; J7030; 93005; 93010; 99284

== ENCOUNTER 2024-09-21 20:03 | Emergency (ER) | payer MEDICARE ==
[2024-09-21 20:32] LABS: BASOPHILS PERCENT AUTO 0.4 % (0.0-1.0); EOSINOPHILS ABSOLUTE AUTO 0.3 K/mm3 (0.0-0.4); EOSINOPHILS PERCENT AUTO 3.5 % (0.0-6.0); HEMATOCRIT 43.1 % (42.0-52.0); HEMOGLOBIN 14.7 gm/dl (14.0-18.0); IMMATURE GRAN ABSOLUTE AUTO 0.01 K/mm3 (0.00-0.05); IMMATURE GRAN PERCENT AUTO 0.1 % (0.0-0.4); LYMPHOCYTES ABSOLUTE AUTO 2.9 K/mm3 (1.0-4.8); LYMPHOCYTES PERCENT AUTO 36.5 % (24.0-44.0); MEAN CORPUSCULAR HEMOGLOBIN 31.7 pg (28.0-32.0); MEAN CORPUSCULAR HGB CONC 34.1 g/dl (32.0-36.0); MEAN CORPUSCULAR VOLUME 93.1 fl (83.0-99.0); MEAN PLATELET VOLUME 10.7 fl (9.4-12.4); MONOCYTES ABSOLUTE AUTO 0.6 K/mm3 (0.0-0.8); MONOCYTES PERCENT AUTO 7.6 % (0.0-8.0); NEUTROPHILS ABSOLUTE AUTO 4.2 K/mm3 (1.8-7.7); NEUTROPHILS PERCENT AUTO 51.9 % (41.0-71.0); PLATELET COUNT,PLT 251 K/mm3 (150-400); RED BLOOD CELL COUNT 4.63 M/mm3 (4.52-5.90); WHITE BLOOD CELL COUNT,WBC 8.01 K/mm3 (3.9-11.3)
[2024-09-21 20:45] LABS: INR 1.15; PROTHROMBIN TIME 12.1 SECONDS (9.7-12.0)
[2024-09-21 20:46] LABS: PTT,PARTIAL THROMBOPLSTIN TIME 25.7 SECONDS (21.7-31.4)
[2024-09-21 21:22] LABS: ALANINE AMINOTRANSFERASE,ALT 32 U/L (16-63); ALBUMIN 3.4 g/dl (3.4-5.0); ALKALINE PHOSPHATASE 46 U/L (46-116); ANION GAP 11.9 (5-15); ASPARTATE AMNIOTRANSFERASE,AST 22 U/L (15-37); BILIRUBIN TOTAL 0.6 mg/dL (0.2-1.0); BLOOD UREA NITROGEN,BUN 22 mg/dL (7-18); BUN/CREATININE RATIO 18.3 (14-18); CALCIUM 9.1 mg/dL (8.5-10.1); CARBON DIOXIDE,CO2 30 mEq/L (21-32); CHLORIDE,CL 101 mEq/L (98-107); CREATININE 1.2 mg/dL (0.7-1.3); ESTIMATED GFR 64 mL/min (>60); GLUCOSE RANDOM 134 mg/dL (70-99); LIPASE 33 U/L (16-77); MAGNESIUM 1.9 mg/dL (1.8-2.4); POTASSIUM,K 3.9 mEq/L (3.5-5.1); PROTEIN TOTAL,TP 6.8 g/dl (6.4-8.2); SODIUM,NA 139 mEq/L (136-145)
[2024-09-21 21:23] LABS: TROPONIN I HIGH SENSITIVITY 100 pg/mL (<=76)
[2024-09-21] MEDS: Metoprolol Tartrate 25 MG Tab PO ONE (21:35)
[2024-09-21 21:36] VITALS: BP 114/71; PULSE 71
[2024-09-21] MEDS: Morphine 2 MG/ML SYRINGE IVPUSH ONE (21:47)
[2024-09-21] MEDS: Ondansetron 4 MG/2 ML SDV IVPUSH ONE (21:48)
[2024-09-21] MEDS: Heparin Sodium 5,000 Units/ML Vial IVPUSH ONE (22:03)
[2024-09-21] MEDS: Heparin Sodium/D5W 250 ML IV SCH (22:15)
== END 2024-09-21 23:00 ==
LOC: JD.ED 20:03
DX: I21.9 Acute myocardial infarction, unspecified (principal); I24.9 Acute ischemic heart disease, unspecified; I10 Essential (primary) hypertension; Z88.5 Allergy status to narcotic agent; Z79.899 Other long term (current) drug therapy; Z86.16 Personal history of COVID-19
CPT/HCPCS: 36415; 71045; 71045-26; 80053; 83690; 83735; 83880; 84484; 85025; 85610; 85730; 93005; 96365; 96366; 96375; 99285-25; A9270-GY; J1644; J2270; J2405

== ENCOUNTER 2024-10-17 01:59 | Emergency (ER) | payer MEDICARE ==
[2024-10-17 02:23] VITALS: BP 155/98; PULSE 64
[2024-10-17 02:24] LABS: APPEARANCE,URINE CLEAR (Clear); BILIRUBIN,URINE NEGATIVE (Negative); COLOR,URINE YELLOW (Yellow); GLUCOSE,URINE NEGATIVE (Negative); KETONES,URINE NEGATIVE (Negative); LEUKOCYTE ESTERASE,URINE NEGATIVE (Negative); NITRITE,URINE NEGATIVE (Negative); OCCULT BLOOD,URINE TRACE-LYSED (Negative); PH,URINE 6.5 (5.0-8.0); PROTEIN,URINE NEGATIVE (Negative); UROBILINOGEN,URINE 0.2 (0.2-1.0)
[2024-10-17 02:32] LABS: EPITHELIAL CELLS,URINE NOT SEEN /hpf (0-5); WBC,URINE 0-5 /hpf (0-5)
[2024-10-17 02:33] LABS: BACTERIA,URINE RARE /hpf (FEW); BARBITURATE SCREEN,URINE NEGATIVE (CUTOFF=200); BENZODIAZEPINES SCREEN,URINE NEGATIVE (CUTOFF=150); BUPRENORPHINE SCREEN,URINE NEGATIVE (CUTOFF=10); METHADONE SCREEN, URINE NEGATIVE (CUT0FF=200); METHAMPHETAMINES SCREEN, URINE NEGATIVE (CUTOFF=500); MUCUS,URINE NOT SEEN /hpf (FEW); OXYCODONE SCREEN,URINE NEGATIVE (CUT0FF=100); THC SCREEN,URINE 20 NG/ML NEGATIVE (CUTOFF=50)
[2024-10-17 02:37] LABS: AMPHETAMINES SCREEN, URINE NEGATIVE (CUTOFF=500)
== END 2024-10-17 03:07 | disposition home or self-care (01) ==
LOC: JD.ED 01:59
DX: R33.9 Retention of urine, unspecified (principal); M19.90 Unspecified osteoarthritis, unspecified site; I10 Essential (primary) hypertension; Z86.16 Personal history of COVID-19; Z79.899 Other long term (current) drug therapy; Z88.8 Allergy status to other drugs, medicaments and biological substances
CPT/HCPCS: 51701; 51798; 80306; 81001; 99283; C1758

== ENCOUNTER 2024-10-17 13:03 | Emergency (ER) | payer MEDICARE ==
[2024-10-17] MEDS ORDERED: Iopamidol 612 MG/ML 100 ML Bottle IVPUSH ONE ×2 (13:58→14:59)
[2024-10-17] MEDS: Sodium Chloride 0.9% 1,000 ML IV ONE (14:10)
[2024-10-17] MEDS: Sodium Chloride 0.9% 10 ML Syringe FLUSH ONE (14:10)
[2024-10-17 14:16] LABS: BASOPHILS PERCENT AUTO 0.3 % (0.0-1.0); EOSINOPHILS ABSOLUTE AUTO 0.3 K/mm3 (0.0-0.4); HEMATOCRIT 44.8 % (42.0-52.0); HEMOGLOBIN 15.2 gm/dl (14.0-18.0); IMMATURE GRAN ABSOLUTE AUTO 0.02 K/mm3 (0.00-0.05); IMMATURE GRAN PERCENT AUTO 0.2 % (0.0-0.4); LYMPHOCYTES ABSOLUTE AUTO 2.5 K/mm3 (1.0-4.8); MEAN CORPUSCULAR HEMOGLOBIN 31.9 pg (28.0-32.0); MEAN CORPUSCULAR HGB CONC 33.9 g/dl (32.0-36.0); MEAN CORPUSCULAR VOLUME 93.9 fl (83.0-99.0); MEAN PLATELET VOLUME 10.2 fl (9.4-12.4); MONOCYTES ABSOLUTE AUTO 0.8 K/mm3 (0.0-0.8); MONOCYTES PERCENT AUTO 9.1 % (0.0-8.0); NEUTROPHILS ABSOLUTE AUTO 5.3 K/mm3 (1.8-7.7); NEUTROPHILS PERCENT AUTO 59.4 % (41.0-71.0); PLATELET COUNT,PLT 238 K/mm3 (150-400); RED BLOOD CELL COUNT 4.77 M/mm3 (4.52-5.90); WHITE BLOOD CELL COUNT,WBC 8.97 K/mm3 (3.9-11.3)
[2024-10-17 14:26] LABS: APPEARANCE,URINE CLOUDY (Clear); BILIRUBIN,URINE NEGATIVE (Negative); COLOR,URINE AMBER (Yellow); GLUCOSE,URINE NEGATIVE (Negative); KETONES,URINE NEGATIVE (Negative); LEUKOCYTE ESTERASE,URINE NEGATIVE (Negative); NITRITE,URINE NEGATIVE (Negative); OCCULT BLOOD,URINE 3+ (Negative); PROTEIN,URINE 3+ (Negative); UROBILINOGEN,URINE 0.2 (0.2-1.0)
[2024-10-17 14:37] LABS: A/G RATIO 1.1 (1-2); ALBUMIN 3.7 g/dl (3.4-5.0); ANION GAP 12.1 (5-15); BILIRUBIN TOTAL 0.7 mg/dL (0.2-1.0); CALCIUM 9.2 mg/dL (8.5-10.1); EST CRCL DRUG DOSING (CG) 59.37 mL/min; POTASSIUM,K 4.1 mEq/L (3.5-5.1); PROTEIN TOTAL,TP 7.2 g/dl (6.4-8.2)
[2024-10-17 14:44] LABS: BACTERIA,URINE MODERATE /hpf (FEW); EPITHELIAL CELLS,URINE 0-5 /hpf (0-5); MUCUS,URINE FEW /hpf (FEW); RBC,URINE TOO NUMEROUS TO CNT /hpf (0-5); WBC,URINE 0-5 /hpf (0-5)
[2024-10-17] MEDS ORDERED: Sodium Chloride 0.9% 10 ML Syringe FLUSH ONE (14:59)
[2024-10-17 16:57] VITALS: BP 138/68; PULSE 68
== END 2024-10-17 17:15 | disposition home or self-care (01) ==
LOC: JD.ED 13:03
DX: N20.1 Calculus of ureter (principal); R31.9 Hematuria, unspecified; Z88.8 Allergy status to other drugs, medicaments and biological substances; Z79.899 Other long term (current) drug therapy; I10 Essential (primary) hypertension; M19.90 Unspecified osteoarthritis, unspecified site; Z86.16 Personal history of COVID-19
CPT/HCPCS: 36415; 51798; 74177; 80053; 81001; 85025; 96360; 96361; 99284; J7030